=== PATIENT | female | born 1975 | race African-American/Black ===

== ENCOUNTER 2019-11-29 10:39 | Outpatient (CLI) | payer BC ==
--- NOTE | 2019-11-29 11:05 | RAD ---
3 views of the lumbar spine: 11/29/2019 COMPARISON: None HISTORY: Chronic pain FINDINGS: No fracture or dislocation. 5 lumbar type vertebral bodies are present with intact pedicles on frontal imaging. IMPRESSION: No acute findings.
== END 2019-11-29 10:40 | disposition home or self-care (01) ==
LOC: MADRAD 10:39
PROVIDERS: ATTEND Family Medicine
DX: M54.9 Dorsalgia, unspecified (principal)
CPT/HCPCS: 72100

== ENCOUNTER 2019-12-28 10:04 | Outpatient (CLI) | payer BC, OTHER ==
--- NOTE | 2019-12-28 10:46 | RAD ---
XR Chest Pa Lat STANDARD HISTORY: Chronic bronchitis. Positive FOR COVID COMPARISON: None FINDINGS: The heart size is normal. The lungs are well expanded without focal areas of consolidation, pneumothorax or pleural effusions. IMPRESSION: No radiographic evidence of acute cardiopulmonary process.
== END 2019-12-28 10:05 | disposition home or self-care (01) ==
LOC: MADRAD 10:04
PROVIDERS: ATTEND Family Medicine
DX: U07.1 COVID-19 (principal); J20.9 Acute bronchitis, unspecified
CPT/HCPCS: 71046

== ENCOUNTER 2021-03-28 10:15 | Outpatient (CLI) | payer BC ==
[2021-03-28 11:14] LABS: ALT (SGPT) 7 U/L (8-55); AST (SGOT) 11 U/L (5-34); Albumin 4.2 g/dL (3.5-5.0); Alkaline Phosphatase 28 U/L (40-110); Anion Gap 11 mmol/L (10-20); BUN (Urea Nitrogen) 11 mg/dL (7.0-18.7); Bilirubin, Total 0.3 mg/dL (0.2-1.2); Calc. Creatinine Clearance 0 mL/min (70-130); Calcium 9.2 mg/dL (7.8-10.44); Carbon Dioxide 21 mmol/L (22-29); Cardiac Risk 2.8 (Less than 4.5); Chloride 111 mmol/L (98-107); Cholesterol 128 mg/dl (< 200 Desired); Globulin 2.7 g/dL (2.4-3.5); Glucose 88 mg/dL (70-105); HDL Cholesterol 46 mg/dL (>60 Neg Risk); LDL Cholesterol, Calculated 73 mg/dL; Potassium 3.7 mmol/L (3.5-5.1); Protein, Total 6.9 g/dL (6.0-8.3); Sodium 139 mmol/L (136-145); Triglycerides 47 mg/dL (Less than 150)
[2021-03-28 11:20] LABS: CKMB 0.5 ng/mL (0-6.6); Troponin I 0.023 ng/mL (< 0.028)
== END 2021-03-28 10:16 | disposition home or self-care (01) ==
LOC: MADLAB 10:15
PROVIDERS: ATTEND Family Medicine
DX: I10 Essential (primary) hypertension (principal); R07.2 Precordial pain
CPT/HCPCS: 36415; 80053; 80061; 82553; 84484